=== PATIENT | female | born 1985 | race Caucasian/White ===

== ENCOUNTER → 2016-11-28 | Outpatient (CLI) | payer BC, OTHER ==
[~2016-11-28] MED LIST: DROS1TAB24 PO; PARO1TAB9 PO
--- NOTE | 2016-11-28 10:26 | DIAGNOSTIC IMAGING REPORT ---
CERVICAL SPINE SERIES WITH FLEXION-EXTENSION VIEWS (7 VIEWS) CLINICAL HISTORY: Chronic neck pain COMPARISON STUDY: No previous studies for comparison. FINDINGS: There is straightening of the normal cervical lordosis. No fractures or subluxations are visualized. The bony neural foramina appear patent bilaterally. There is no instability on flexion or extension. IMPRESSION: Straightening of normal cervical lordosis. No fractures or subluxations identified. No evidence of instability on flexion or extension. Electronically signed by: Gonzales Rowe M.D. 11/28/2016 10:25 AM Dictated Date/Time: 11/28/2016 10:23 AM
--- NOTE | 2016-12-02 14:29 | CODING QUERY NO DIAGNOSIS ---
: 1985 TREATMENT RENDERED WITHOUT A DIAGNOSIS To promote full compliance with coding requirements relating to patient care, physician participation is requested in all cases of pediatrician active practice uncertainty. Please assist us with providing a diagnosis/symptom for the test(s) below: A diagnosis/symptom was not documented on your Order. A valid diagnosis/symptom is required to bill all insurances. Please remember that we are unable to code a diagnosis of rule out, probable, possible, questionable, or suspected. Tests that require a diagnosis: DOS: 11/28/16 * CERVICAL SPINE X-RAY DIAGNOSIS: Provider Signature: Date: Thank you [facility] Once completed, please kindly fax back to [phone] For questions please call [phone]
== END | disposition home or self-care (01) ==
LOC: C.RAD 10:04
PROVIDERS: ATTEND Internal Medicine Pulmonary Disease
DX: M54.2 Cervicalgia (principal); M95.3 Acquired deformity of neck